=== PATIENT | female | born 1970 | race Caucasian/White ===

== ENCOUNTER 2022-09-04 06:04 | Day surgery (SDC) | payer MEDICAID ==
[~2022-09-04] VITALS: Ht 160 cm; Wt 71.7 kg
[2022-09-04] MEDS ORDERED: fentaNYL citrate 0.05 MG/ML VIAL ONE (07:55)
[2022-09-04] MEDS ORDERED: LIDOCAINE 2% 100 MG/5 ML UJET TP ONE (07:55)
[2022-09-04] MEDS ORDERED: fentaNYL citrate 0.05 MG/ML VIAL IVP ONE (08:50)
== END 2022-09-04 09:15 | disposition home or self-care (01) ==
LOC: MOR 06:04 → MMU 06:06 → MOR 09:15
PROVIDERS: ATTEND Internal Medicine Gastroenterology
DX: Z12.11 Encounter for screening for malignant neoplasm of colon (principal); K63.5 Polyp of colon; I10 Essential (primary) hypertension; E11.9 Type 2 diabetes mellitus without complications; E78.5 Hyperlipidemia, unspecified; I25.10 Atherosclerotic heart disease of native coronary artery without angina pectoris; F32.A Depression, unspecified; M19.90 Unspecified osteoarthritis, unspecified site; Z80.8 Family history of malignant neoplasm of other organs or systems; Z79.899 Other long term (current) drug therapy
CPT/HCPCS: 45385; J3010